=== PATIENT | male | born 1990 | race Caucasian/White ===

== ENCOUNTER 2018-12-01 15:02 | Emergency (ER) | payer MEDICAID, SELFPAY ==
[2018-12-01 15:03] VITALS: BP 140/75; PULSE 96; RESP 18; TEMP 35.9; O2SAT 98; BMI 29.4
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
[2018-12-01 15:45] LABS: Absolute Lymphocyte Count 1.89 X10^3/ul (0.83-4.51); Absolute Neutrophil Count 4.5 X10^3/uL (2.0-7.7); Basophil# 0.03 X10^3/uL; Basophil% 0.4 % (0-1); Eosinophil# 0.42 X10^3/uL; Eosinophils% 5.5 % (0-5); Hematocrit 46.9 % (40-54); Hemoglobin 16.5 g/dl (13.0-16.5); Lymphocyte # 1.89 X10^3/ul (4.0); Lymphocyte % 24.7 % (19-41); Mean Corp Hgb Conc 35.2 g/gl (32-36); Mean Corpuscular Hgb 30.3 pg (27.0-32.0); Mean Corpuscular Volume 86.2 fL (80-94); Monocyte# 0.75 X10^3/uL; Monocyte% 9.8 % (0-10); Neutrophil # 4.52 X10^3/uL (2.7-7.7); Neutrophil % 59.1 % (47-70); Platelet Count 257 K/mm3 (150-450); RBC Distribution Width SD 40.4 fl (35.1-43.9); Red Blood Count 5.44 M/mm3 (4.6-6.2); White Blood Count 7.7 K/mm3 (4.4-11.0)
[2018-12-01 15:49] LABS: POSITIVE COUNT NO; POSITIVE DIFFERENTIAL NO; POSITIVE MORPHOLOGY NO
[2018-12-01 16:03] VITALS: RESP 16
[2018-12-01 16:06] LABS: Anion Gap 5 (5-15); BUN 12 mg/dL (7-18); BUN/Creat Ratio 13.3 RATIO (10-20); Calcium,Total 9.2 mg/dL (8.5-10.1); Chloride 110 mmol/L (98-107); EST Glomerular Filtration Rate 108 mL/min (>60); Est Glom Filt Rate - Afr Amer 131 mL/min (>60); Estimated Creatinine Clearance 129.55 ml/min; Glucose 65 mg/dL (74-106); Potassium 3.9 mmol/L (3.5-5.1); Sodium Level 141 mmol/L (136-145)
[2018-12-01 16:19] LABS: Alcohol, Blood (Medical)-Serum < 3.0 mg/dL
[2018-12-01 16:22] LABS: Amphetamine Urine VISTA POSITIVE (<1000 ng/mL); Barbiturate Urine VISTA NEGATIVE (< 200 ng/mL); Benzodiazepine Urine VISTA NEGATIVE (< 200 ng/mL); Cocaine Urine VISTA NEGATIVE (< 300 ng/mL); Ecstacy Urine VISTA NEGATIVE (< 500 ng/mL); Methadone Urine VISTA NEGATIVE (< 300 ng/mL); PCP Urine VISTA NEGATIVE (< 25 ng/mL); THC Urine VISTA POSITIVE (< 50 ng/mL); Vista UDS pH Range 5
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
[2018-12-01 17:03] VITALS: RESP 18
[2018-12-01 18:03] VITALS: RESP 16
[2018-12-01] MEDS: Ziprasidone IM 20 MG/ML VIAL IM (18:25)
--- NOTE | 2018-12-01 18:25 | ED.RN ---
PATIENT ESCALATING QUICKLY. THREATENING TO LEAVE ED. YELLING. HRO AND SECURITY CALLED. MEDICATED PER ORDERS. ER MD AWARE.
--- NOTE | 2018-12-01 18:55 | CM.ED ---
SOCIAL WORK CASE DISCUSSED WITH DR. RODRÍGUEZ AND NURSING. PLAN FOR CRISIS TO RE-EVALUATE. CALL TO THE [facility] AND RECEIVED RETURNED CALL FROM CATERING ATTENDANTFLAMER AFTER LASTING, SUKI. UPDATED ON PATIENT'S CASE, THIS WORKER'S ASSESSMENT AND CURRENT STATUS. INFORMED OF CRISIS CONSULT. PER SUKI, WILL BE UNABLE TO ASSESS PATIENT HER SHIFT IS ENDING. SUKI REPORTS ANAM TO BE IN TO WORK AT 8:30P AND WILL HAVE PATIENT BE SEEN FIRST. NURSING UPDATED. HARRY SANCHEZ, SYRUP MIXER, PERSONAL CAREGIVER.
[2018-12-01 20:32] VITALS: BP 130/67; PULSE 63; RESP 16; O2SAT 99
--- NOTE | 2018-12-01 21:01 | ED.RN ---
[facility]IS CALLED, [facility] WILL BE IN TO SEE THIS PT
--- NOTE | 2018-12-01 23:13 | ED.RN ---
patient is being refereed to [facility] at this time
[2018-12-01 23:21] VITALS: RESP 18
[2018-12-02] VITALS (10 sets, daily range): BP systolic 149; BP diastolic 83; PULSE 61–64; RESP 14–17; TEMP 36.4; O2SAT 97–98
--- NOTE | 2018-12-02 02:21 | ED.RN ---
[facility] CALLED AND REQUESTED FURTHER INFORMATION AT THIS TIME
--- NOTE | 2018-12-02 02:45 | ED.RN ---
[facility]IS CALLED THIS PT WAS ACCEPTED BY [facility], INFO FOR REPORT GIVEN TO RN
[2018-12-02] MEDS: Ziprasidone IM 20 MG/ML VIAL IM (11:00)
--- NOTE | 2018-12-02 12:29 | ED.RN ---
[facility] ARRIVED TO ED FOR TRANSPORT OF PT TO [facility] IN [place]. PT BECAME AGITATED AND COMBATIVE, BEGAN TO SCREAM THAT HE WAS NOT GOING TO GO TO [facility] AND THAT HE WAS TOLD THAT HE WOULD BE ALLOWED TO GO HOME. PT STATES THAT IF HE HAD KNOWN THAT HE WAS GOING TO A PSYCHIATRIC FACILITY THAT HE WOULD HAVE TRIED TO ESCAPE PRIOR TO TRANSPORT ARRIVING. PT STATES THAT HE DOES NOT BELONG IN A PSYCHIATRIC FACILITY AND THAT HE REFUSES TO GO. PT SAT IN CORNER OF ROOM AND BEGAN TO CRY. [place] [employer] WAS NOTIFIED AND SEVERAL POLICE PERSONNEL ARRIVED. SECURITY PERSONNEL WAS ALSO PRESENT IN ED. PHYSICIAN WAS NOTIFIED OF OUTBURST AND VERBALLY ORDERED GEODON TO BE ADMINISTERED TO PT. [facility] INFORMED THIS NURSE THAT THEY WOULD NOT BE TRANSPORTING PT AND THEY WOULD BE CALLING A MEDIC [facility] INSTEAD. CHANGE IN TRANSPORT WAS ARRANGED AND MEDICATION WAS ADMINISTERED. PD AND SECURITY REMAINED IN ED UNTIL TRANSPORT ARRIVED AND PT WAS SECURED IN TRANSPORT SQUAD.
== END 2018-12-02 12:42 ==
PROVIDERS: Emergency Provider Emergency Medicine; Family Provider Family Medicine; PCP Family Medicine
DX: R45.851 Suicidal ideations (principal); F15.10 Other stimulant abuse, uncomplicated; Z72.0 Tobacco use
CPT/HCPCS: 80048; 80307; 80320; 85025; 96372; 99284; G0480; J3486

== ENCOUNTER → 2019-02-13 | Outpatient (CLI) | payer MEDICAID, SELFPAY ==
[2019-02-13 17:26] LABS: Absolute Lymphocyte Count 2.14 X10^3/uL (0.83-4.51); Absolute Neutrophil Count 3.2 X10^3/uL (2.0-7.7); Basophil# 0.07 X10^3/uL; Basophil% 1.2 % (0-1); Eosinophil# 0.25 X10^3/uL; Eosinophils% 4.1 % (0-5); Hematocrit 53.6 % (40-54); Hemoglobin 17.7 g/dL (13.0-16.5); Lymphocyte # 2.14 X10^3/ul (4.0); Lymphocyte % 35.4 % (19-41); Mean Corpuscular Hgb 30.5 pg (27.0-32.0); Mean Corpuscular Volume 92.4 fL (80-94); Mean Platelet Vol. 10.1 fl (6.2-12.0); Monocyte% 6.6 % (0-10); NRBC Flagged by Analyzer 0 % (0-5); Neutrophil # 3.16 X10^3/uL (2.7-7.7); Neutrophil % 52.2 % (47-70); Platelet Count 273 K/mm3 (150-450); RBC Distribution Width CV 12.1 % (11.6-14.6); RBC Distribution Width SD 41.2 fl (35.1-43.9); White Blood Count 6.1 K/mm3 (4.4-11.0)
[2019-02-13 17:46] LABS: ALB/GLOB Ratio 1.1 RATIO (0.9-2.4); AST(SGOT) 27 U/L (15-37); Alanine Aminotransfer ALT/SGPT 58 U/L (16-61); Albumin, Serum 4.1 g/dL (3.2-5.0); Alkaline Phosphatase 108 U/L (45-117); Anion Gap 4 (5-15); BUN 14 mg/dL (7-18); BUN/Creat Ratio 15.3 RATIO (10-20); Calcium,Total 9.1 mg/dL (8.5-10.1); Chloride 106 mmol/L (98-107); Creatinine, Serum 0.92 mg/dL (0.70-1.30); EST Glomerular Filtration Rate 106 mL/min (>60); Est Glom Filt Rate - Afr Amer 128 mL/min (>60); Globulin 3.7 g/dL (2.2-4.2); Glucose 87 mg/dL (74-106); Potassium 4.1 mmol/L (3.5-5.1); Protein, Total 7.8 g/dL (6.4-8.2); Sodium Level 139 mmol/L (136-145); Thyroid Stim Hormone (TSH) 1.58 uIU/mL (0.358-3.74)
[2019-02-14 10:00] LABS: Hepatitis C Antibody REACTIVE (Nonreactive)
== END | disposition home or self-care (01) ==
LOC: MFPLAB 16:04
PROVIDERS: Family Provider Family Medicine; PCP Family Medicine; Referring Provider Family Medicine; Visit Provider Family Medicine
DX: F31.9 Bipolar disorder, unspecified (principal)
CPT/HCPCS: 36415; 80053; 84443; 85025; 86803